=== PATIENT | male | born 1985 | race Caucasian/White ===

== ENCOUNTER 2018-11-05 03:09 | Emergency (ER) | payer MEDICAID ==
[~2018-11-05] VITALS: Ht 170.2 cm; Wt 91.0 kg
[2018-11-05] MEDS ORDERED: KETOROLAC 30MG/ML VIAL IV STA (04:05)
[2018-11-05] MEDS ORDERED: ONDANSETRON HCL 4MG/2ML INJ IV STA (04:05)
[2018-11-05] MEDS ORDERED: SODIUM CHLORIDE 0.9% 1,000 ML IV ONE (04:05)
[2018-11-05 04:31] LABS: CHLORIDE 107 mEq/L (98-107)
[2018-11-05 04:35] LABS: BASOPHILS % 1.7 % (0.0-2.0); EOSINOPHILS % 3.7 % (0.0-5.0); HEMATOCRIT. 32.8 % (42.0-52.0); HEMOGLOBIN. 11.1 g/dL (14.0-18.0); LYMPHOCYTES % 49.9 % (20.0-50.0); MEAN CORPUSCULAR HEMOGLOBIN 28.7 pg (28.0-32.0); MEAN CORPUSCULAR VOLUME 85.2 fL (80.0-94.0); MEAN PLATELET VOLUME 7.5 fl (7.4-10.4); NEUTROPHILS % 35.7 % (40.0-76.0); PLATELET 187 x1000/uL (130-400); RED BLOOD CELL COUNT 3.86 mill/uL (4.7-6.1); RED CELL DISTRIBUTION WIDTH 18.5 % (11.6-14.6)
[2018-11-05 04:38] LABS: ETHANOL BLOOD 260 mg/dL
[2018-11-05] MEDS ORDERED: METFORMIN HCL 500MG TABLET PO SCH (06:00)
[2018-11-05] MEDS ORDERED: GLIPIZIDE XL 2.5MG TABLET PO ONE (06:00)
[2018-11-05 06:39] LABS: CLARITY URINE CLEAR (CLEAR); COLOR URINE YELLOW (YELLOW); KETONES URINE NEGATIVE (NEGATIVE); LEUKOCYTE ESTERASE URINE NEGATIVE (NEGATIVE); NITRITE URINE NEGATIVE (NEGATIVE); OCCULT BLOOD URINE NEGATIVE (NEGATIVE); PH URINE 5.5 (4.5-8.0); PROTEIN URINE NEGATIVE (NEGATIVE); SPECIFIC GRAVITY URINE 1.011 (1.005-1.030); UROBILINOGEN URINE 0.2 E.U./dL (0.2-1.0)
[2018-11-05 07:05] VITALS: BP 121/84
== END 2018-11-05 08:00 | disposition home or self-care (01) ==
LOC: ER 03:45
DX: N20.0 Calculus of kidney (principal); F10.129 Alcohol abuse with intoxication, unspecified; Y90.8 Blood alcohol level of 240 mg/100 ml or more; E11.9 Type 2 diabetes mellitus without complications; E78.00 Pure hypercholesterolemia, unspecified; I10 Essential (primary) hypertension; Z87.442 Personal history of urinary calculi
CPT/HCPCS: 36415; 74176; 80053; 80320; 81003; 82962; 85025; 96374; 96375; 99284; J1885; J2405; J7030; G0480

== ENCOUNTER 2019-04-08 03:36 | Emergency (ER) | payer MEDICAID ==
[~2019-04-08] VITALS: Ht 172.7 cm; Wt 86.0 kg
[2019-04-08 04:12] VITALS: BP 124/77
== END 2019-04-08 06:01 | disposition left against medical advice (07) ==
LOC: ER 03:36
DX: Z53.21 Procedure and treatment not carried out due to patient leaving prior to being seen by health care provider (principal); E11.9 Type 2 diabetes mellitus without complications
CPT/HCPCS: 82962

== ENCOUNTER 2020-03-26 21:21 | Emergency (ER) | payer MEDICAID ==
[~2020-03-26] VITALS: Ht 157.5 cm; Wt 91.0 kg
[2020-03-26] MEDS ORDERED: KETOROLAC 30MG/ML VIAL IV ONE (22:00)
[2020-03-26] MEDS ORDERED: SODIUM CHLORIDE 0.9% 1000ML BAG (SEPSIS BOLUS) IV ONE (22:00)
[2020-03-26 22:52] LABS: CLARITY URINE CLEAR (CLEAR); COLOR URINE YELLOW (YELLOW); KETONES URINE 2+ (NEGATIVE); LEUKOCYTE ESTERASE URINE NEGATIVE (NEGATIVE); NITRITE URINE NEGATIVE (NEGATIVE); OCCULT BLOOD URINE NEGATIVE (NEGATIVE); PROTEIN URINE 1+ (NEGATIVE); UROBILINOGEN URINE 0.2 E.U./dL (0.2-1.0)
[2020-03-26] MEDS ORDERED: ONDANSETRON HCL 4MG/2ML INJ IV ONE (23:00)
[2020-03-27 00:09] VITALS: BP 124/82
[2020-03-27] MEDS ORDERED: MORPHINE SULFATE 4 MG/ML CPJ (NOT FOR IM USE) IV ONE (00:15)
== END 2020-03-27 00:10 | disposition home or self-care (01) ==
LOC: ER 21:21
DX: N20.0 Calculus of kidney (principal); K57.90 Diverticulosis of intestine, part unspecified, without perforation or abscess without bleeding; K76.0 Fatty (change of) liver, not elsewhere classified
CPT/HCPCS: 74176; 81003; 93005; 96361; 96374; 96375; 99285; J1885; J2405; J7030

== ENCOUNTER 2020-07-27 05:40 | Emergency (ER) | payer MEDICAID ==
[~2020-07-27] VITALS: Ht 172.7 cm; Wt 90.7 kg
[2020-07-27] MEDS ORDERED: KETOROLAC 30MG/ML VIAL IV STA (06:26)
[2020-07-27] MEDS ORDERED: ONDANSETRON HCL 4MG/2ML INJ IV STA (06:26)
[2020-07-27] MEDS ORDERED: SODIUM CHLORIDE 0.9% 1,000 ML IV ONE (06:30)
[2020-07-27] MEDS ORDERED: HYDROMORPHONE HCL/PF 2MG/ML CPJ IV ONE (06:30)
[2020-07-27 06:44] LABS: BASOPHILS % 0.4 % (0.0-2.0); HEMATOCRIT. 41.9 % (42.0-52.0); HEMOGLOBIN. 13.2 g/dL (14.0-18.0); LYMPHOCYTES % 14.1 % (20.0-50.0); MEAN CORPUSCULAR HEMOGLOBIN 21.2 pg (28.0-32.0); MEAN CORPUSCULAR VOLUME 67.5 fL (80.0-94.0); MEAN PLATELET VOLUME 7.7 fl (7.4-10.4); MONOCYTES % 4.5 % (2.0-8.0); PLATELET 406 x1000/uL (130-400); RED CELL DISTRIBUTION WIDTH 21.4 % (11.6-14.6)
[2020-07-27 06:51] LABS: CHLORIDE 88 mEq/L (98-107)
[2020-07-27 07:37] LABS: CLARITY URINE CLEAR (CLEAR); COLOR URINE YELLOW (YELLOW); KETONES URINE 2+ (NEGATIVE); LEUKOCYTE ESTERASE URINE NEGATIVE (NEGATIVE); NITRITE URINE NEGATIVE (NEGATIVE); OCCULT BLOOD URINE 1+ (NEGATIVE); PROTEIN URINE 2+ (NEGATIVE); UROBILINOGEN URINE 0.2 E.U./dL (0.2-1.0)
[2020-07-27] MEDS ORDERED: IBUP-2029 MT (07:42)
[2020-07-27] MEDS ORDERED: ONDA4TAB5 MT (07:43)
[2020-07-27 07:57] LABS: PLATELET ESTIMATE NORMAL
[2020-07-27 08:14] VITALS: BP 158/92
== END 2020-07-27 08:18 | disposition home or self-care (01) ==
LOC: ER 05:40
DX: N20.0 Calculus of kidney (principal)
CPT/HCPCS: 36415; 74176; 80053; 81003; 85025; 93005; 96374; 96375; 99285; J1170; J1885; J2405; J7030; Z7610

== ENCOUNTER 2021-01-24 02:04 | Emergency (ER) | payer MEDICAID, OTHER ==
[~2021-01-24] VITALS: Ht 172.7 cm; Wt 91.0 kg
[~2021-01-24 02:04] MED LIST: IBUP-2029 MT; ONDA4TAB5 MT
[2021-01-24] MEDS ORDERED: SODIUM CHLORIDE 0.9% 1,000 ML IV ONE (02:15)
[2021-01-24] MEDS ORDERED: ONDANSETRON HCL 4MG/2ML INJ IV STA (02:15)
[2021-01-24] MEDS ORDERED: KETOROLAC 30MG/ML VIAL IV STA (02:15)
[2021-01-24 03:47] LABS: CHLORIDE 97 mEq/L (98-107)
[2021-01-24 03:50] LABS: BASOPHILS % 1.2 % (0.0-2.0); CLARITY URINE CLEAR (CLEAR); COLOR URINE YELLOW (YELLOW); EOSINOPHILS % 0.1 % (0.0-5.0); HEMATOCRIT. 39.1 % (42.0-52.0); HEMOGLOBIN. 12.8 g/dL (14.0-18.0); KETONES URINE 2+ (NEGATIVE); LEUKOCYTE ESTERASE URINE NEGATIVE (NEGATIVE); LYMPHOCYTES % 30.5 % (20.0-50.0); MEAN CORPUSCULAR HEMOGLOBIN 24.5 pg (28.0-32.0); MEAN CORPUSCULAR VOLUME 74.6 fL (80.0-94.0); MEAN PLATELET VOLUME 7.6 fl (7.4-10.4); MONOCYTES % 5.6 % (2.0-8.0); NEUTROPHILS % 62.6 % (40.0-76.0); NITRITE URINE NEGATIVE (NEGATIVE); OCCULT BLOOD URINE NEGATIVE (NEGATIVE); PH URINE 5.5 (4.5-8.0); PLATELET 384 x1000/uL (130-400); PROTEIN URINE 2+ (NEGATIVE); RED BLOOD CELL COUNT 5.24 mill/uL (4.7-6.1); SPECIFIC GRAVITY URINE 1.032 (1.005-1.030)
[2021-01-24] MEDS ORDERED: MORPHINE SULFATE 4 MG/ML CPJ (NOT FOR IM USE) IV ONE (04:45)
[2021-01-24] MEDS ORDERED: MORPHINE SULFATE 2 MG/ML CPJ (NOT FOR IM USE) IV SCH (05:00)
[2021-01-24] MEDS ORDERED: ONDA4TAB5 MT (05:27)
[2021-01-24] MEDS ORDERED: IBUP-2029 MT (05:27)
[2021-01-24] MEDS ORDERED: METOCLOPRAMIDE HCL 10MG/2ML VIAL IV ONE (05:30)
[2021-01-24] MEDS ORDERED: LORAZEPAM 2MG/ML CPJ IV ONE (05:30)
[2021-01-24 05:49] VITALS: BP 145/92
== END 2021-01-24 05:51 | disposition home or self-care (01) ==
LOC: ER 02:04
DX: N23 Unspecified renal colic (principal); F10.239 Alcohol dependence with withdrawal, unspecified; Y90.9 Presence of alcohol in blood, level not specified; Z87.442 Personal history of urinary calculi
CPT/HCPCS: 36415; 71045; 74176; 80053; 81003; 83690; 84484; 85025; 93005; 96361; 96374; 96375; 99285; J1885; J2060; J2270; J2405; J2765; J7030

== ENCOUNTER 2021-02-02 13:01 | Emergency (ER) | payer MEDICAID, OTHER ==
[~2021-02-02] VITALS: Ht 167.6 cm; Wt 80.0 kg
[2021-02-02] MEDS ORDERED: SODIUM CHLORIDE 0.9% 1,000 ML IV ONE (13:30)
[2021-02-02] MEDS ORDERED: ONDANSETRON HCL 4MG/2ML INJ IV ONE (14:00)
[2021-02-02 14:43] LABS: BASOPHILS % 1.1 % (0.0-2.0); EOSINOPHILS % 0.9 % (0.0-5.0); HEMATOCRIT. 37.2 % (42.0-52.0); LYMPHOCYTES % 52.4 % (20.0-50.0); MEAN CORPUSCULAR HEMOGLOBIN 24.4 pg (28.0-32.0); MEAN CORPUSCULAR VOLUME 75.9 fL (80.0-94.0); MEAN PLATELET VOLUME 7.7 fl (7.4-10.4); MONOCYTES % 9.5 % (2.0-8.0); NEUTROPHILS % 36.1 % (40.0-76.0); PLATELET 236 x1000/uL (130-400); RED BLOOD CELL COUNT 4.91 mill/uL (4.7-6.1); RED CELL DISTRIBUTION WIDTH 20.7 % (11.6-14.6)
[2021-02-02 14:48] LABS: CLARITY URINE CLEAR (CLEAR); COLOR URINE YELLOW (YELLOW); KETONES URINE 1+ (NEGATIVE); LEUKOCYTE ESTERASE URINE NEGATIVE (NEGATIVE); NITRITE URINE NEGATIVE (NEGATIVE); OCCULT BLOOD URINE NEGATIVE (NEGATIVE); PROTEIN URINE NEGATIVE (NEGATIVE); UROBILINOGEN URINE 0.2 E.U./dL (0.2-1.0)
[2021-02-02] MEDS ORDERED: LORAZEPAM 2MG/ML CPJ IV ONE (15:15)
[2021-02-02 15:18] LABS: *AMPHETAMINES SCREEN URINE NEGATIVE (NEGATIVE); *BARBITURATES SCREEN URINE NEGATIVE (NEGATIVE); *BENZODIAZEPINES SCREEN URINE NEGATIVE (NEGATIVE); *COCAINE SCREEN URINE NEGATIVE (NEGATIVE); CANNABINOID URINE SCREEN PRESUMTIVE POSITIVE (NEGATIVE); METHADONE URINE SCREEN NEGATIVE (NEGATIVE); OPIATES URINE SCREEN NEGATIVE (NEGATIVE); PHENCYCLIDINE URINE SCREEN NEGATIVE (NEGATIVE)
[2021-02-02 15:53] LABS: CHLORIDE 99 mEq/L (98-107)
[2021-02-02 15:57] LABS: ETHANOL BLOOD 273 mg/dL
[2021-02-02 16:45] VITALS: BP 158/99
== END 2021-02-02 16:55 | disposition left against medical advice (07) ==
LOC: ER 13:09
DX: F10.129 Alcohol abuse with intoxication, unspecified (principal); R11.2 Nausea with vomiting, unspecified; Y90.7 Blood alcohol level of 200-239 mg/100 ml
CPT/HCPCS: 36415; 80053; 80305; 80307; 80320; 80329; 81003; 82962; 83930; 83935; 85025; 96361; 96374; 96375; 99284; J2060; J2405; J7030; G0480

== ENCOUNTER 2021-02-03 17:16 | Inpatient (IN) | payer MEDICAID, OTHER ==
[~2021-02-03] VITALS: Ht 167.6 cm; Wt 93.4 kg
[2021-02-03] MEDS ORDERED: SODIUM CHLORIDE 0.9% 1,000 ML IV ONE ×2 (18:30→20:00)
[2021-02-03] MEDS ORDERED: FAMOTIDINE 20MG/2ML VIAL IV ONE (18:30)
[2021-02-03 18:38] LABS: CLARITY URINE CLEAR (CLEAR); COLOR URINE YELLOW (YELLOW); KETONES URINE 1+ (NEGATIVE); LEUKOCYTE ESTERASE URINE NEGATIVE (NEGATIVE); NITRITE URINE NEGATIVE (NEGATIVE); OCCULT BLOOD URINE NEGATIVE (NEGATIVE); PROTEIN URINE NEGATIVE (NEGATIVE); UROBILINOGEN URINE 0.2 E.U./dL (0.2-1.0)
[2021-02-03 18:39] LABS: BASOPHILS % 1.6 % (0.0-2.0); EOSINOPHILS % 0.1 % (0.0-5.0); HEMATOCRIT. 38.6 % (42.0-52.0); HEMOGLOBIN. 12.3 g/dL (14.0-18.0); LYMPHOCYTES % 43.8 % (20.0-50.0); MEAN CORPUSCULAR HEMOGLOBIN 24.5 pg (28.0-32.0); MEAN CORPUSCULAR VOLUME 76.8 fL (80.0-94.0); MONOCYTES % 12.3 % (2.0-8.0); NEUTROPHILS % 42.2 % (40.0-76.0); RED BLOOD CELL COUNT 5.03 mill/uL (4.7-6.1); RED CELL DISTRIBUTION WIDTH 20.7 % (11.6-14.6)
[2021-02-03 18:43] LABS: CHLORIDE 96 mEq/L (98-107)
[2021-02-03 18:51] LABS: *AMPHETAMINES SCREEN URINE NEGATIVE (NEGATIVE); *BARBITURATES SCREEN URINE NEGATIVE (NEGATIVE); *BENZODIAZEPINES SCREEN URINE NEGATIVE (NEGATIVE); *COCAINE SCREEN URINE NEGATIVE (NEGATIVE)
[2021-02-03 18:52] LABS: CANNABINOID URINE SCREEN NEGATIVE (NEGATIVE); METHADONE URINE SCREEN NEGATIVE (NEGATIVE); OPIATES URINE SCREEN NEGATIVE (NEGATIVE); PHENCYCLIDINE URINE SCREEN NEGATIVE (NEGATIVE)
[2021-02-03 18:56] LABS: ETHANOL BLOOD 448 mg/dL
[2021-02-03] MEDS ORDERED: INSULIN REGULAR (HUMULIN R) 300UNITS/3ML VIAL SUBCUT NR (19:00)
[2021-02-03 19:02] LABS: PROTHROMBIN TIME 10.9 sec (9.6-11.0)
[2021-02-03 19:31] LABS: PLATELET 204 x1000/uL (130-400)
[2021-02-03] MEDS ORDERED: ACETAMINOPHEN 325MG TABLET PO ONE (20:00)
[2021-02-03] MEDS ORDERED: IBUPROFEN 400MG TABLET PO ONE (20:00)
[2021-02-03] MEDS ORDERED: PIPERACILLIN/TAZ 3.375G PREMIX 50 ML IV ONE (22:15)
[2021-02-03] MEDS ORDERED: SODIUM CHLORIDE 0.9% 1000ML BAG (SEPSIS BOLUS) IV ONE (22:15)
[2021-02-04 00:40] VITALS: BP 151/101
[2021-02-04] MEDS ORDERED: DEXTROSE 50% WATER 50ML SYRINGE IV PRN (01:30)
[2021-02-04] MEDS ORDERED: ACETAMINOPHEN 325MG TABLET PO PRN (01:30)
[2021-02-04] MEDS ORDERED: LACTATED RINGERS 1,000 ML IV SCH (01:30)
[2021-02-04] MEDS: LORAZEPAM 2MG/ML CPJ IV PRN ×4 (02:08→19:21)
[2021-02-04] MEDS ORDERED: NALOXONE HCL 0.4 MG/ML 1ML VIAL IV PRN (02:15)
[2021-02-04] MEDS: ONDANSETRON HCL 4MG/2ML INJ IV PRN ×4 (02:19→19:59)
[2021-02-04 02:55] LABS: CHLORIDE 102 mEq/L (98-107)
[2021-02-04 02:59] LABS: ETHANOL BLOOD 155 mg/dL
[2021-02-04] MEDS ORDERED: FOLIC ACID 1 MG, THIAMINE HCL 100 MG, MVI, ADULT NO.1 10 ML in DEXTROSE 5% WATER 1,000 ML IV SCH (03:00)
[2021-02-04 03:34] LABS: HEPATITIS B SURFACE ANTIGEN NEGATIVE
[2021-02-04] MEDS: HYDROCODONE/ACETAMINOPHEN 5/325MG TABLET PO PRN ×2 (03:55→22:04)
[2021-02-04 04:00] VITALS: BP 133/79
[2021-02-04] MEDS: CHLORDIAZEPOXIDE 25MG CAPSULE PO SCH ×3 (06:10→20:45)
[2021-02-04] MEDS: BLOOD SUGAR DIAGNOSTIC STRIP TEST SCH ×4 (06:11→20:46)
[2021-02-04 07:23] LABS: CHLORIDE 99 mEq/L (98-107)
[2021-02-04 07:31] LABS: CREATINE KINASE MB FRACTION 4.5 ng/mL (0.5-3.6); ETHANOL BLOOD 76 mg/dL
[2021-02-04 07:32] LABS: BASOPHILS % 1.6 % (0.0-2.0); EOSINOPHILS % 0.1 % (0.0-5.0); HEMATOCRIT. 32.9 % (42.0-52.0); HEMOGLOBIN. 10.8 g/dL (14.0-18.0); LYMPHOCYTES % 30.4 % (20.0-50.0); MEAN CORPUSCULAR HEMOGLOBIN 24.8 pg (28.0-32.0); MEAN CORPUSCULAR VOLUME 75.8 fL (80.0-94.0); MEAN PLATELET VOLUME 7.8 fl (7.4-10.4); MONOCYTES % 13.2 % (2.0-8.0); NEUTROPHILS % 54.7 % (40.0-76.0); PLATELET 196 x1000/uL (130-400); RED BLOOD CELL COUNT 4.35 mill/uL (4.7-6.1)
[2021-02-04 07:33] LABS: LDL CHOLESTEROL 115 mg/dL (5-100)
[2021-02-04 07:34] LABS: CREATINE KINASE 417 IU/L (39-308)
[2021-02-04 07:35] LABS: HDL CHOLESTEROL 60 mg/dL (40-59)
[2021-02-04 08:00] VITALS: BP 148/100
[2021-02-04] MEDS: INSULIN LISPRO 100 UNITS/ML SUBCUT SCH ×4 (09:08→20:47)
[2021-02-04] MEDS: PANTOPRAZOLE SODIUM 40 MG/VIAL IV SCH (10:44)
[2021-02-04] MEDS: SODIUM CHLORIDE 0.9% 1,000 ML IV SCH ×2 (10:45→20:16)
[2021-02-04] MEDS ORDERED: POTASSIUM CHLORIDE INJ 40 MEQ in DEXT 5% WATER 250 ML IV NR (11:00)
[2021-02-04 11:14] LABS: PHOSPHORUS 2.7 mg/dL (2.5-4.9)
[2021-02-04 12:00] VITALS: BP 134/86
[2021-02-04] MEDS ORDERED: INFLUENZA VACCINE 05/PF 0.5 ML SYRINGE IM ONE (12:00)
[2021-02-04] MEDS ORDERED: PNEUMOCOCCAL 23-VAL P-SAC VAC 0.5 ML IM ONE (12:00)
[2021-02-04] MEDS: FOLIC ACID 1MG TABLET PO SCH (13:09)
[2021-02-04] MEDS: THIAMINE HCL 100MG TABLET PO SCH (13:09)
[2021-02-04] MEDS: MULTIVITAMINS,THER W-MINERALS TABLET PO SCH (13:09)
[2021-02-04] MEDS: MORPHINE SULFATE 2 MG/ML CPJ (NOT FOR IM USE) IV PRN ×2 (13:10→17:41)
[2021-02-04] MEDS ORDERED: MAGNESIUM 2 G PREMIX 50 ML IV NR (14:00)
[2021-02-04 16:00] VITALS: BP 150/95
[2021-02-04 17:45] LABS: CREATINE KINASE 378 IU/L (39-308)
[2021-02-04 17:46] LABS: CREATINE KINASE MB FRACTION 3.8 ng/mL (0.5-3.6)
[2021-02-04 20:00] VITALS: BP 147/89
[2021-02-05] VITALS: BP 161/92
[2021-02-05] MEDS: LORAZEPAM 2MG/ML CPJ IV PRN ×5 (00:19→22:52)
[2021-02-05] MEDS: HYDROCODONE/ACETAMINOPHEN 5/325MG TABLET PO PRN ×2 (02:27→17:15)
[2021-02-05] MEDS: ONDANSETRON HCL 4MG/2ML INJ IV PRN ×5 (02:31→22:50)
[2021-02-05 04:00] VITALS: BP 137/75
[2021-02-05] MEDS: CHLORDIAZEPOXIDE 25MG CAPSULE PO SCH ×3 (06:14→21:17)
[2021-02-05] MEDS: SODIUM CHLORIDE 0.9% 1,000 ML IV SCH ×2 (06:14→16:33)
[2021-02-05 06:32] LABS: BASOPHILS % 1.2 % (0.0-2.0); HEMATOCRIT. 36.3 % (42.0-52.0); HEMOGLOBIN. 11.7 g/dL (14.0-18.0); LYMPHOCYTES % 28.8 % (20.0-50.0); MEAN CORPUSCULAR HEMOGLOBIN 24.6 pg (28.0-32.0); MEAN PLATELET VOLUME 7.8 fl (7.4-10.4); MONOCYTES % 11.3 % (2.0-8.0); NEUTROPHILS % 57.7 % (40.0-76.0); PLATELET 201 x1000/uL (130-400); RED BLOOD CELL COUNT 4.78 mill/uL (4.7-6.1); RED CELL DISTRIBUTION WIDTH 20.6 % (11.6-14.6)
[2021-02-05 06:36] LABS: CHLORIDE 101 mEq/L (98-107)
[2021-02-05] MEDS: MORPHINE SULFATE 2 MG/ML CPJ (NOT FOR IM USE) IV PRN ×2 (07:58→13:44)
[2021-02-05] MEDS: BLOOD SUGAR DIAGNOSTIC STRIP TEST SCH ×4 (07:59→21:19)
[2021-02-05 08:04] VITALS: BP 148/61
[2021-02-05] MEDS: PANTOPRAZOLE SODIUM 40 MG/VIAL IV SCH (08:59)
[2021-02-05] MEDS: FOLIC ACID 1MG TABLET PO SCH (09:00)
[2021-02-05] MEDS: THIAMINE HCL 100MG TABLET PO SCH (09:00)
[2021-02-05] MEDS: MULTIVITAMINS,THER W-MINERALS TABLET PO SCH (09:00)
[2021-02-05] MEDS: INSULIN LISPRO 100 UNITS/ML SUBCUT SCH ×4 (09:07→21:18)
[2021-02-05 12:00] VITALS: BP 140/85
[2021-02-05 16:05] VITALS: BP 146/91
[2021-02-05 20:00] VITALS: BP 138/99
[2021-02-05] MEDS: INSULIN GLARGINE UD 100 UNITS/ML SYR SUBCUT SCH (21:19)
[2021-02-06] VITALS: BP 160/103
[2021-02-06] MEDS: SODIUM CHLORIDE 0.9% 1,000 ML IV SCH ×3 (02:12→21:22)
[2021-02-06] MEDS: MORPHINE SULFATE 2 MG/ML CPJ (NOT FOR IM USE) IV PRN ×2 (02:13→13:29)
[2021-02-06 04:00] VITALS: BP 137/104
[2021-02-06] MEDS: LORAZEPAM 2MG/ML CPJ IV PRN ×3 (05:32→15:06)
[2021-02-06] MEDS: CHLORDIAZEPOXIDE 25MG CAPSULE PO SCH ×3 (05:32→21:22)
[2021-02-06] MEDS: BLOOD SUGAR DIAGNOSTIC STRIP TEST SCH ×4 (06:34→21:22)
[2021-02-06 06:53] LABS: CHLORIDE 102 mEq/L (98-107)
[2021-02-06 06:56] LABS: BASOPHILS % 0.8 % (0.0-2.0); EOSINOPHILS % 1.7 % (0.0-5.0); HEMATOCRIT. 35.8 % (42.0-52.0); HEMOGLOBIN. 11.7 g/dL (14.0-18.0); LYMPHOCYTES % 22.6 % (20.0-50.0); MEAN CORPUSCULAR HEMOGLOBIN 24.8 pg (28.0-32.0); MEAN CORPUSCULAR VOLUME 76.2 fL (80.0-94.0); MEAN PLATELET VOLUME 8.1 fl (7.4-10.4); NEUTROPHILS % 64.9 % (40.0-76.0); PLATELET 208 x1000/uL (130-400); RED CELL DISTRIBUTION WIDTH 21.4 % (11.6-14.6)
[2021-02-06 07:07] LABS: TOTAL IRON BINDING CAPACITY 362 ug/dL (250-450)
[2021-02-06 07:08] LABS: FOLIC ACID (FOLATE) SERUM 19.6 ng/mL (>5.38)
[2021-02-06 08:25] VITALS: BP 138/104
[2021-02-06] MEDS: THIAMINE HCL 100MG TABLET PO SCH (09:03)
[2021-02-06] MEDS: FOLIC ACID 1MG TABLET PO SCH (09:03)
[2021-02-06] MEDS: MULTIVITAMINS,THER W-MINERALS TABLET PO SCH (09:03)
[2021-02-06] MEDS: PANTOPRAZOLE SODIUM 40 MG/VIAL IV SCH (09:03)
[2021-02-06] MEDS: HYDROCODONE/ACETAMINOPHEN 10/325MG TABLET PO PRN ×2 (09:04→21:22)
[2021-02-06] MEDS: ONDANSETRON HCL 4MG/2ML INJ IV PRN (09:04)
[2021-02-06] MEDS: INSULIN LISPRO 100 UNITS/ML SUBCUT SCH ×4 (09:04→21:22)
[2021-02-06] MEDS ORDERED: POTASSIUM CHLORIDE 20MEQ TABLET SR PO SCH (12:00)
[2021-02-06 12:04] VITALS: BP 155/99
[2021-02-06 16:00] VITALS: BP 141/97
[2021-02-06] MEDS: IRON SUCROSE COMPLEX 100 MG/5 ML ML IV SCH (16:57)
[2021-02-06 20:00] VITALS: BP 142/92
[2021-02-06] MEDS: INSULIN GLARGINE UD 100 UNITS/ML SYR SUBCUT SCH (21:20)
[2021-02-06] MEDS ORDERED: CLONIDINE 0.1MG TABLET PO PRN (23:30)
[2021-02-07] VITALS: BP 133/97
[2021-02-07] MEDS: LORAZEPAM 2MG/ML CPJ IV PRN ×4 (01:27→21:37)
[2021-02-07 04:00] VITALS: BP 137/102
[2021-02-07] MEDS: CHLORDIAZEPOXIDE 25MG CAPSULE PO SCH ×3 (05:48→21:36)
[2021-02-07 06:30] LABS: CHLORIDE 102 mEq/L (98-107)
[2021-02-07 06:46] LABS: PHOSPHORUS 2.9 mg/dL (2.5-4.9)
[2021-02-07] MEDS: BLOOD SUGAR DIAGNOSTIC STRIP TEST SCH ×5 (07:20→21:37)
[2021-02-07] MEDS: MULTIVITAMINS,THER W-MINERALS TABLET PO SCH (09:46)
[2021-02-07] MEDS: THIAMINE HCL 100MG TABLET PO SCH (09:46)
[2021-02-07] MEDS: FOLIC ACID 1MG TABLET PO SCH (09:46)
[2021-02-07] MEDS: SODIUM CHLORIDE 0.9% 1,000 ML IV SCH ×2 (09:47→18:16)
[2021-02-07] MEDS: IRON SUCROSE COMPLEX 100 MG/5 ML ML IV SCH (09:47)
[2021-02-07] MEDS: PANTOPRAZOLE SODIUM 40 MG/VIAL IV SCH (09:52)
[2021-02-07] MEDS: INSULIN LISPRO 100 UNITS/ML SUBCUT SCH ×4 (09:53→21:39)
[2021-02-07] MEDS: MORPHINE SULFATE 2 MG/ML CPJ (NOT FOR IM USE) IV PRN (18:11)
[2021-02-07] MEDS ORDERED: POTASSIUM CHLORIDE 20MEQ TABLET SR PO NR (19:24)
[2021-02-07 20:00] VITALS: BP 128/95
[2021-02-07] MEDS: INSULIN GLARGINE UD 100 UNITS/ML SYR SUBCUT SCH (21:40)
[2021-02-08] MEDS ORDERED: PANTOPRAZOLE 40MG DR TABLET PO SCH (07:20)
== END 2021-02-07 23:15 | disposition left against medical advice (07) | DRG 241 ==
LOC: ER 17:16 → 6WST 22:30 → ENRESERV 23:10
PROVIDERS: ADMIT Internal Medicine; ATTEND Internal Medicine
DX: K29.20 Alcoholic gastritis without bleeding (principal); M62.82 Rhabdomyolysis; K76.0 Fatty (change of) liver, not elsewhere classified; D50.9 Iron deficiency anemia, unspecified; E78.1 Pure hyperglyceridemia; E78.5 Hyperlipidemia, unspecified; E11.65 Type 2 diabetes mellitus with hyperglycemia; K57.90 Diverticulosis of intestine, part unspecified, without perforation or abscess without bleeding; E83.42 Hypomagnesemia; F10.139 Alcohol abuse with withdrawal, unspecified; Y90.9 Presence of alcohol in blood, level not specified; F10.129 Alcohol abuse with intoxication, unspecified; N20.0 Calculus of kidney; Z87.442 Personal history of urinary calculi; Z79.1 Long term (current) use of non-steroidal anti-inflammatories (NSAID); Z79.899 Other long term (current) drug therapy; Z82.49 Family history of ischemic heart disease and other diseases of the circulatory system; Z79.4 Long term (current) use of insulin; Z91.19 Patient's noncompliance with other medical treatment and regimen
CPT/HCPCS: 36415; 71045; 74176; 80048; 80053; 80061; 80305; 80307; 80320; 80329; 81003; 82010; 82550; 82553; 82607; 82728; 82746; 82962; 83036; 83540; 83550; 83605; 83735; 83930; 84100; 84145; 84484; 85025; 86705; 86709; 86803; 87340; 93005; 97161; 99291; C9113; J1815; J2060; J2270; J2405; J2543; J3411; J3475; J3480; J3490; J7030; J7060; J7070; G0480

== ENCOUNTER 2021-02-13 04:25 | Emergency (ER) | payer OTHER ==
[~2021-02-13] VITALS: Ht 167.6 cm; Wt 82.0 kg
[2021-02-13] MEDS ORDERED: ONDANSETRON HCL 4MG/2ML INJ IV STA (05:26)
[2021-02-13] MEDS ORDERED: KETOROLAC 30MG/ML VIAL IV STA (05:26)
[2021-02-13] MEDS ORDERED: MORPHINE SULFATE 4 MG/ML CPJ (NOT FOR IM USE) IV STA (05:26)
[2021-02-13] MEDS ORDERED: SODIUM CHLORIDE 0.9% 1,000 ML IV ONE (05:30)
[2021-02-13 06:07] LABS: BASOPHILS % 2.9 % (0.0-2.0); EOSINOPHILS % 0.8 % (0.0-5.0); HEMATOCRIT. 37.8 % (42.0-52.0); HEMOGLOBIN. 12.1 g/dL (14.0-18.0); LYMPHOCYTES % 41.3 % (20.0-50.0); MEAN CORPUSCULAR HEMOGLOBIN 25.4 pg (28.0-32.0); MEAN CORPUSCULAR VOLUME 79.3 fL (80.0-94.0); MEAN PLATELET VOLUME 6.9 fl (7.4-10.4); MONOCYTES % 12.8 % (2.0-8.0); NEUTROPHILS % 42.2 % (40.0-76.0); PLATELET 243 x1000/uL (130-400); RED BLOOD CELL COUNT 4.76 mill/uL (4.7-6.1); RED CELL DISTRIBUTION WIDTH 25.7 % (11.6-14.6)
[2021-02-13 06:09] LABS: CHLORIDE 99 mEq/L (98-107)
[2021-02-13 06:56] LABS: CLARITY URINE CLEAR (CLEAR); COLOR URINE YELLOW (YELLOW); KETONES URINE NEGATIVE (NEGATIVE); LEUKOCYTE ESTERASE URINE NEGATIVE (NEGATIVE); NITRITE URINE NEGATIVE (NEGATIVE); OCCULT BLOOD URINE NEGATIVE (NEGATIVE); PROTEIN URINE NEGATIVE (NEGATIVE); SPECIFIC GRAVITY URINE 1.018 (1.005-1.030); UROBILINOGEN URINE 0.2 E.U./dL (0.2-1.0)
[2021-02-13 07:00] VITALS: BP 141/109
[2021-02-13] MEDS ORDERED: LORAZEPAM 2MG/ML CPJ IV ONE (08:00)
[2021-02-13 08:10] LABS: PLATELET ESTIMATE NORMAL
[2021-02-13] MEDS ORDERED: SULF1TAB47 MT (08:40)
[2021-02-13] MEDS ORDERED: L25 MT (08:40)
== END 2021-02-13 08:57 | disposition left against medical advice (07) ==
LOC: ER 04:52 → CANBEDREQ 08:59
DX: K75.81 Nonalcoholic steatohepatitis (NASH) (principal); N39.0 Urinary tract infection, site not specified; F10.239 Alcohol dependence with withdrawal, unspecified; E86.0 Dehydration; Z20.822 Contact with and (suspected) exposure to COVID-19; Y90.9 Presence of alcohol in blood, level not specified
CPT/HCPCS: 36415; 74176; 80053; 81003; 82962; 83690; 85025; 87426; 93005; 96361; 96374; 96375; 99285; J1885; J2060; J2270; J2405; J7030

== ENCOUNTER 2021-02-19 14:16 | Emergency (ER) | payer MEDICAID, OTHER ==
[~2021-02-19] VITALS: Ht 160 cm; Wt 90.0 kg
[~2021-02-19 14:16] MED LIST changes: +L25 MT; +SULF1TAB47 MT
[2021-02-19 18:48] VITALS: BP 125/86
[2021-02-27] MEDS ORDERED: GLIP5TAB12 MT (11:25)
[2021-02-27] MEDS ORDERED: METF-416 PO (11:25)
== END 2021-02-19 19:00 | disposition home or self-care (01) ==
LOC: ER 14:16
DX: F10.129 Alcohol abuse with intoxication, unspecified (principal); E11.9 Type 2 diabetes mellitus without complications; Z79.899 Other long term (current) drug therapy; Z87.891 Personal history of nicotine dependence; Y90.9 Presence of alcohol in blood, level not specified
CPT/HCPCS: 82962; 99283

== ENCOUNTER 2021-02-23 09:26 | Emergency (ER) | payer OTHER ==
[~2021-02-23] VITALS: Ht 172.7 cm; Wt 93.0 kg
[2021-02-23] MEDS ORDERED: ONDANSETRON HCL 4MG/2ML INJ IV STA (10:05)
[2021-02-23] MEDS ORDERED: KETOROLAC 30MG/ML VIAL IV STA (10:05)
[2021-02-23] MEDS ORDERED: SODIUM CHLORIDE 0.9% 1,000 ML IV ONE (10:15)
[2021-02-23 10:27] LABS: BASOPHILS % 1.8 % (0.0-2.0); CHLORIDE 104 mEq/L (98-107); EOSINOPHILS % 0.8 % (0.0-5.0); HEMATOCRIT. 38.3 % (42.0-52.0); MEAN CORPUSCULAR HEMOGLOBIN 25.5 pg (28.0-32.0); MEAN CORPUSCULAR VOLUME 81.4 fL (80.0-94.0); MONOCYTES % 12.6 % (2.0-8.0); NEUTROPHILS % 41.8 % (40.0-76.0); PLATELET 192 x1000/uL (130-400); RED BLOOD CELL COUNT 4.71 mill/uL (4.7-6.1); RED CELL DISTRIBUTION WIDTH 26.7 % (11.6-14.6)
[2021-02-23 10:33] LABS: CLARITY URINE CLEAR (CLEAR); COLOR URINE YELLOW (YELLOW); KETONES URINE TRACE (NEGATIVE); LEUKOCYTE ESTERASE URINE NEGATIVE (NEGATIVE); NITRITE URINE NEGATIVE (NEGATIVE); OCCULT BLOOD URINE NEGATIVE (NEGATIVE); PROTEIN URINE NEGATIVE (NEGATIVE); SPECIFIC GRAVITY URINE 1.011 (1.005-1.030)
[2021-02-23] MEDS ORDERED: MAGNESIUM/ALUMINUM HYDROXIDE/SIMETHICONE 30ML UDC PO ONE (10:45)
[2021-02-23 10:51] LABS: ETHANOL BLOOD 344 mg/dL
[2021-02-23 11:03] LABS: PLATELET ESTIMATE NORMAL
[2021-02-23 11:41] VITALS: BP 124/86
[2021-02-23] MEDS ORDERED: CHLORDIAZEPOXIDE 25MG CAPSULE PO ONE (12:00)
== END 2021-02-23 12:00 | disposition left against medical advice (07) ==
LOC: ER 09:26
DX: K85.90 Acute pancreatitis without necrosis or infection, unspecified (principal); F10.129 Alcohol abuse with intoxication, unspecified; E11.9 Type 2 diabetes mellitus without complications; Y90.8 Blood alcohol level of 240 mg/100 ml or more
CPT/HCPCS: 36415; 80053; 80320; 81003; 83690; 85025; 96361; 96374; 96375; 99284; J1885; J2405; J7030; G0480

== ENCOUNTER 2021-02-24 20:41 | Inpatient (IN) | payer OTHER ==
[~2021-02-24] VITALS: Ht 172.7 cm; Wt 90.7 kg
[2021-02-24] MEDS ORDERED: ONDANSETRON HCL 4MG/2ML INJ IV STA (21:27)
[2021-02-24] MEDS ORDERED: FOLIC ACID 1 MG, THIAMINE HCL 100 MG, MVI, ADULT NO.1 10 ML in DEXTROSE 5% WATER 1,000 ML IV ONE (21:30)
[2021-02-24] MEDS ORDERED: CHLORDIAZEPOXIDE 25MG CAPSULE PO ONE (21:30)
[2021-02-24] MEDS ORDERED: LORAZEPAM 2MG/ML CPJ IV ONE (21:30)
[2021-02-24 22:07] LABS: CLARITY URINE CLEAR (CLEAR); COLOR URINE YELLOW (YELLOW); KETONES URINE TRACE (NEGATIVE); LEUKOCYTE ESTERASE URINE NEGATIVE (NEGATIVE); NITRITE URINE NEGATIVE (NEGATIVE); OCCULT BLOOD URINE NEGATIVE (NEGATIVE); PH URINE 6.5 (4.5-8.0); PROTEIN URINE NEGATIVE (NEGATIVE); SPECIFIC GRAVITY URINE 1.012 (1.005-1.030); UROBILINOGEN URINE 0.2 E.U./dL (0.2-1.0)
[2021-02-24 22:13] LABS: BASOPHILS % 2.8 % (0.0-2.0); EOSINOPHILS % 0.1 % (0.0-5.0); HEMATOCRIT. 42.1 % (42.0-52.0); HEMOGLOBIN. 13.2 g/dL (14.0-18.0); LYMPHOCYTES % 22.3 % (20.0-50.0); MEAN CORPUSCULAR VOLUME 82.8 fL (80.0-94.0); MEAN PLATELET VOLUME 7.2 fl (7.4-10.4); MONOCYTES % 10.2 % (2.0-8.0); NEUTROPHILS % 64.6 % (40.0-76.0); PLATELET 177 x1000/uL (130-400); RED BLOOD CELL COUNT 5.09 mill/uL (4.7-6.1); RED CELL DISTRIBUTION WIDTH 26.7 % (11.6-14.6)
[2021-02-24 22:18] LABS: *AMPHETAMINES SCREEN URINE NEGATIVE (NEGATIVE); *BARBITURATES SCREEN URINE NEGATIVE (NEGATIVE); *BENZODIAZEPINES SCREEN URINE PRESUMTIVE POSITIVE (NEGATIVE); *COCAINE SCREEN URINE NEGATIVE (NEGATIVE); METHADONE URINE SCREEN NEGATIVE (NEGATIVE); OPIATES URINE SCREEN NEGATIVE (NEGATIVE)
[2021-02-24 22:19] LABS: CHLORIDE 113 mEq/L (98-107)
[2021-02-24 22:19] LABS: CANNABINOID URINE SCREEN NEGATIVE (NEGATIVE); PHENCYCLIDINE URINE SCREEN NEGATIVE (NEGATIVE)
[2021-02-24 22:36] LABS: ETHANOL BLOOD 331 mg/dL
[2021-02-24 22:44] LABS: PLATELET ESTIMATE NORMAL
[2021-02-25] MEDS ORDERED: NALOXONE HCL 0.4MG/ML VIAL IV PRN (04:00)
[2021-02-25] MEDS: HYDROCODONE/ACETAMINOPHEN 10/325MG TABLET PO PRN ×4 (04:03→22:14)
[2021-02-25] MEDS ORDERED: CHLORDIAZEPOXIDE 25MG CAPSULE PO ONE (09:15)
[2021-02-25] MEDS ORDERED: ONDANSETRON HCL 4MG/2ML INJ IV PRN (10:00)
[2021-02-25] MEDS ORDERED: CHLORDIAZEPOXIDE 25MG CAPSULE PO SCH ×2 (10:00→14:00)
[2021-02-25] MEDS ORDERED: ONDANSETRON HCL 4MG/2ML INJ IV SCH (10:00)
[2021-02-25] MEDS: SODIUM CHLORIDE 0.45% 1,000 ML IV SCH ×2 (10:14→18:38)
[2021-02-25] MEDS: FAMOTIDINE 20MG/2ML VIAL IV SCH ×2 (10:15→22:13)
[2021-02-25] MEDS: LORAZEPAM 2MG/ML CPJ IV PRN ×2 (11:17→18:38)
[2021-02-25 12:29] LABS: BASOPHILS % 1.7 % (0.0-2.0); EOSINOPHILS % 0.4 % (0.0-5.0); HEMATOCRIT. 38.8 % (42.0-52.0); HEMOGLOBIN. 12.1 g/dL (14.0-18.0); MEAN CORPUSCULAR HEMOGLOBIN 25.2 pg (28.0-32.0); MEAN PLATELET VOLUME 7.6 fl (7.4-10.4); MONOCYTES % 13.3 % (2.0-8.0); NEUTROPHILS % 45.6 % (40.0-76.0); PLATELET 166 x1000/uL (130-400); RED BLOOD CELL COUNT 4.79 mill/uL (4.7-6.1); RED CELL DISTRIBUTION WIDTH 26.1 % (11.6-14.6)
[2021-02-25] MEDS ORDERED: MORPHINE SULFATE 2 MG/ML CPJ (NOT FOR IM USE) IV ONE (12:30)
[2021-02-25 12:31] LABS: CHLORIDE 102 mEq/L (98-107)
[2021-02-25] MEDS: CHLORDIAZEPOXIDE 25MG CAPSULE PO SCH ×2 (14:11→22:12)
[2021-02-25 20:00] VITALS: BP 148/99
[2021-02-25] MEDS ORDERED: METF-416 PO (22:31)
[2021-02-25] MEDS ORDERED: GLIP5TAB12 MT (22:31)
[2021-02-26] VITALS (7 sets, daily range): BP systolic 136–155; BP diastolic 80–101
[2021-02-26] MEDS: KCL 20MEQ/100ML PREMIX 100 ML IV SCH ×2 (00:03→02:36)
[2021-02-26] MEDS: SODIUM CHLORIDE 0.45% 1,000 ML IV SCH ×3 (01:43→17:07)
[2021-02-26] MEDS: CHLORDIAZEPOXIDE 25MG CAPSULE PO SCH ×3 (06:20→21:47)
[2021-02-26] MEDS: FAMOTIDINE 20MG/2ML VIAL IV SCH ×2 (08:35→20:14)
[2021-02-26] MEDS: LORAZEPAM 2MG/ML CPJ IV PRN ×3 (08:38→22:51)
[2021-02-26] MEDS: HYDROCODONE/ACETAMINOPHEN 10/325MG TABLET PO PRN ×3 (10:07→20:14)
[2021-02-26] MEDS: POTASSIUM CHLORIDE 20MEQ TABLET SR PO PRN ×2 (13:21→21:48)
[2021-02-26 17:18] LABS: CHLORIDE 96 mEq/L (98-107)
[2021-02-27] VITALS: BP 158/90
[2021-02-27] MEDS: MORPHINE SULFATE 2 MG/ML CPJ (NOT FOR IM USE) IV PRN ×6 (00:34→23:34)
[2021-02-27 04:00] VITALS: BP 140/100
[2021-02-27] MEDS: SODIUM CHLORIDE 0.45% 1,000 ML IV SCH ×3 (04:01→18:02)
[2021-02-27] MEDS: CHLORDIAZEPOXIDE 25MG CAPSULE PO SCH ×3 (05:24→22:03)
[2021-02-27 08:00] VITALS: BP 132/96
[2021-02-27] MEDS: FAMOTIDINE 20MG/2ML VIAL IV SCH ×2 (09:00→20:33)
[2021-02-27] MEDS: AMLODIPINE 5MG TABLET PO SCH (10:08)
[2021-02-27] MEDS ORDERED: METF-416 PO (11:25)
[2021-02-27] MEDS ORDERED: GLIP5TAB12 MT (11:25)
[2021-02-27] MEDS ORDERED: L25 MT (11:25)
[2021-02-27 12:00] VITALS: BP 136/96
[2021-02-27 16:00] VITALS: BP 116/85
[2021-02-27 20:00] VITALS: BP 148/90
[2021-02-27] MEDS: LORAZEPAM 2MG/ML CPJ IV PRN (20:33)
[2021-02-28] VITALS: BP 122/92
[2021-02-28] MEDS: SODIUM CHLORIDE 0.45% 1,000 ML IV SCH ×2 (02:06→09:38)
[2021-02-28] MEDS: LORAZEPAM 2MG/ML CPJ IV PRN (02:37)
[2021-02-28 04:00] VITALS: BP 126/86
[2021-02-28] MEDS: CHLORDIAZEPOXIDE 25MG CAPSULE PO SCH (05:58)
[2021-02-28] MEDS: MORPHINE SULFATE 2 MG/ML CPJ (NOT FOR IM USE) IV PRN ×2 (05:58→10:49)
[2021-02-28 08:00] VITALS: BP 123/93
[2021-02-28] MEDS: FAMOTIDINE 20MG/2ML VIAL IV SCH (08:47)
[2021-02-28] MEDS: AMLODIPINE 5MG TABLET PO SCH (08:47)
[2021-02-28 12:00] VITALS: BP 120/94
[2021-02-28 12:08] VITALS: BP_SYST 116; BP_SYST 120; BP_DIAS 83
== END 2021-02-28 13:55 | disposition home or self-care (01) | DRG 52 ==
LOC: ER 20:41 → MICUSO 23:43 → 6EST 02-25 18:58
PROVIDERS: ADMIT Family Medicine; ATTEND Family Medicine
DX: G92.9 Unspecified toxic encephalopathy (principal); R45.851 Suicidal ideations; E11.9 Type 2 diabetes mellitus without complications; E86.0 Dehydration; K29.70 Gastritis, unspecified, without bleeding; F10.129 Alcohol abuse with intoxication, unspecified; F10.139 Alcohol abuse with withdrawal, unspecified; Y90.8 Blood alcohol level of 240 mg/100 ml or more; Z20.822 Contact with and (suspected) exposure to COVID-19; Z82.49 Family history of ischemic heart disease and other diseases of the circulatory system; Z79.899 Other long term (current) drug therapy
CPT/HCPCS: 36415; 74018; 80053; 80076; 80305; 80320; 81003; 82248; 85025; 99285; J2060; J2270; J2405; J3411; J3480; J3490; J7070; U0003; U0005; G0480

== ENCOUNTER 2021-03-06 03:25 | Emergency (ER) | payer MEDICAID, OTHER ==
[~2021-03-06] VITALS: Ht 165.1 cm; Wt 90.0 kg
[~2021-03-06 03:25] MED LIST changes: +GLIP5TAB12 MT; -L25 MT; +METF-416 PO; -SULF1TAB47 MT
[2021-03-06] MEDS ORDERED: KETOROLAC 15MG/ML VIAL IV ONE (03:45)
[2021-03-06 04:13] LABS: BASOPHILS % 0.9 % (0.0-2.0); EOSINOPHILS % 0.3 % (0.0-5.0); HEMATOCRIT. 44.8 % (42.0-52.0); LYMPHOCYTES % 35.2 % (20.0-50.0); MEAN CORPUSCULAR HEMOGLOBIN 27.7 pg (28.0-32.0); MEAN CORPUSCULAR VOLUME 82.8 fL (80.0-94.0); MEAN PLATELET VOLUME 7.5 fl (7.4-10.4); MONOCYTES % 9.9 % (2.0-8.0); NEUTROPHILS % 53.7 % (40.0-76.0); PLATELET 203 x1000/uL (130-400); RED BLOOD CELL COUNT 5.41 mill/uL (4.7-6.1); RED CELL DISTRIBUTION WIDTH 26.5 % (11.6-14.6)
[2021-03-06] MEDS ORDERED: KETOROLAC 30MG/ML VIAL IV SCH (04:15)
[2021-03-06 04:19] LABS: CHLORIDE 105 mEq/L (98-107)
[2021-03-06 04:30] LABS: ETHANOL BLOOD < 10 mg/dL
[2021-03-06 05:06] LABS: PLATELET ESTIMATE NORMAL
[2021-03-06] MEDS ORDERED: IBUP-2029 MT (05:06)
[2021-03-06 05:17] LABS: CLARITY URINE CLOUDY (CLEAR); COLOR URINE YELLOW (YELLOW); KETONES URINE NEGATIVE (NEGATIVE); LEUKOCYTE ESTERASE URINE NEGATIVE (NEGATIVE); NITRITE URINE NEGATIVE (NEGATIVE); OCCULT BLOOD URINE 1+ (NEGATIVE); PROTEIN URINE TRACE (NEGATIVE); SPECIFIC GRAVITY URINE 1.015 (1.005-1.030)
[2021-03-06 05:35] LABS: CANNABINOID URINE SCREEN NEGATIVE (NEGATIVE); OPIATES URINE SCREEN NEGATIVE (NEGATIVE); PHENCYCLIDINE URINE SCREEN NEGATIVE (NEGATIVE)
[2021-03-06 05:36] LABS: *AMPHETAMINES SCREEN URINE NEGATIVE (NEGATIVE); *BARBITURATES SCREEN URINE NEGATIVE (NEGATIVE); *BENZODIAZEPINES SCREEN URINE PRESUMTIVE POSITIVE (NEGATIVE); *COCAINE SCREEN URINE NEGATIVE (NEGATIVE); METHADONE URINE SCREEN NEGATIVE (NEGATIVE)
[2021-03-06 05:40] VITALS: BP 131/65
== END 2021-03-06 05:43 | disposition home or self-care (01) ==
LOC: ER 03:25
DX: N20.0 Calculus of kidney (principal); E11.65 Type 2 diabetes mellitus with hyperglycemia; I10 Essential (primary) hypertension; Z79.899 Other long term (current) drug therapy
CPT/HCPCS: 36415; 74176; 80053; 80305; 80320; 81003; 83690; 85025; 96374; 99284; J1885; G0480

== ENCOUNTER 2021-03-18 08:39 | Inpatient (IN) | payer MEDICAID, OTHER ==
[~2021-03-18] VITALS: Ht 172.7 cm; Wt 91.6 kg
[2021-03-18 10:13] LABS: BASOPHILS % 0.5 % (0.0-2.0); EOSINOPHILS % 0.1 % (0.0-5.0); HEMATOCRIT. 38.9 % (42.0-52.0); HEMOGLOBIN. 12.8 g/dL (14.0-18.0); LYMPHOCYTES % 25.3 % (20.0-50.0); MEAN CORPUSCULAR HEMOGLOBIN 26.5 pg (28.0-32.0); MEAN CORPUSCULAR VOLUME 80.3 fL (80.0-94.0); MEAN PLATELET VOLUME 7.3 fl (7.4-10.4); MONOCYTES % 10.7 % (2.0-8.0); NEUTROPHILS % 63.4 % (40.0-76.0); PLATELET 156 x1000/uL (130-400); RED BLOOD CELL COUNT 4.85 mill/uL (4.7-6.1); RED CELL DISTRIBUTION WIDTH 25.1 % (11.6-14.6)
[2021-03-18 10:15] LABS: CHLORIDE 95 mEq/L (98-107)
[2021-03-18 10:18] LABS: ETHANOL BLOOD < 10 mg/dL
[2021-03-18] MEDS ORDERED: ONDANSETRON HCL 4MG/2ML INJ IV STA (10:20)
[2021-03-18] MEDS ORDERED: SODIUM CHLORIDE 0.9% 1,000 ML IV ONE (10:30)
[2021-03-18] MEDS ORDERED: FAMOTIDINE 20MG/2ML VIAL IV ONE (11:45)
[2021-03-18] MEDS ORDERED: LORAZEPAM 2MG/ML CPJ IV ONE (11:45)
[2021-03-18] MEDS ORDERED: ONDANSETRON HCL 4MG/2ML INJ IV ONE (12:15)
[2021-03-18 12:29] LABS: CLARITY URINE CLOUDY (CLEAR); COLOR URINE YELLOW (YELLOW); KETONES URINE 3+ (NEGATIVE); LEUKOCYTE ESTERASE URINE NEGATIVE (NEGATIVE); NITRITE URINE NEGATIVE (NEGATIVE); OCCULT BLOOD URINE NEGATIVE (NEGATIVE); PROTEIN URINE 1+ (NEGATIVE); SPECIFIC GRAVITY URINE 1.017 (1.005-1.030); UROBILINOGEN URINE 0.2 E.U./dL (0.2-1.0)
[2021-03-18 12:53] LABS: METHADONE URINE SCREEN NEGATIVE (NEGATIVE); OPIATES URINE SCREEN NEGATIVE (NEGATIVE)
[2021-03-18 12:55] LABS: *AMPHETAMINES SCREEN URINE NEGATIVE (NEGATIVE); *BARBITURATES SCREEN URINE NEGATIVE (NEGATIVE); *BENZODIAZEPINES SCREEN URINE PRESUMTIVE POSITIVE (NEGATIVE); *COCAINE SCREEN URINE NEGATIVE (NEGATIVE); CANNABINOID URINE SCREEN NEGATIVE (NEGATIVE); PHENCYCLIDINE URINE SCREEN NEGATIVE (NEGATIVE)
[2021-03-18 13:07] LABS: PLATELET ESTIMATE NORMAL
[2021-03-18] MEDS ORDERED: DEXTROSE 50% WATER 50ML SYRINGE IV PRN (18:30)
[2021-03-18] MEDS ORDERED: MORPHINE SULFATE 4 MG/ML CPJ (NOT FOR IM USE) IV PRN (18:30)
[2021-03-18 19:16] LABS: PHOSPHORUS 3.5 mg/dL (2.5-4.9)
[2021-03-18] MEDS ORDERED: NALOXONE HCL 0.4MG/ML VIAL IV PRN (19:30)
[2021-03-18] MEDS ORDERED: MVI, ADULT NO.1 10 ML, FOLIC ACID 1 MG, THIAMINE HCL 100 MG in SODIUM CHLORIDE 0.9% 1,0... IV NR ×4 (19:45)
[2021-03-18] MEDS ORDERED: POTASSIUM CHLORIDE INJ 40 MEQ in DEXT 5% WATER 250 ML IV NR (19:45)
[2021-03-18] MEDS: INSULIN LISPRO 100 UNITS/ML SUBCUT SCH (19:57)
[2021-03-18] MEDS: BLOOD SUGAR DIAGNOSTIC STRIP TEST SCH (19:59)
[2021-03-18] MEDS: PANTOPRAZOLE SODIUM 40 MG/VIAL IV SCH (20:38)
[2021-03-18] MEDS: LORAZEPAM 2MG/ML CPJ IV PRN (20:48)
[2021-03-18] MEDS: ONDANSETRON HCL 4MG/2ML INJ IV PRN (22:55)
[2021-03-19] VITALS (7 sets, daily range): BP systolic 113–154; BP diastolic 59–99
[2021-03-19] MEDS: LORAZEPAM 2MG/ML CPJ IV PRN ×4 (02:16→20:34)
[2021-03-19] MEDS ORDERED: SODIUM CHLORIDE 0.9% 1,000 ML IV SCH (04:00)
[2021-03-19] MEDS: ONDANSETRON HCL 4MG/2ML INJ IV PRN ×2 (05:02→11:29)
[2021-03-19] MEDS: MORPHINE SULFATE 2 MG/ML CPJ (NOT FOR IM USE) IV PRN ×5 (05:03→23:19)
[2021-03-19] MEDS: INSULIN LISPRO 100 UNITS/ML SUBCUT SCH ×4 (05:32→18:25)
[2021-03-19] MEDS: BLOOD SUGAR DIAGNOSTIC STRIP TEST SCH ×4 (05:32→18:30)
[2021-03-19 05:43] LABS: BASOPHILS % 0.7 % (0.0-2.0); EOSINOPHILS % 0.2 % (0.0-5.0); HEMATOCRIT. 36.3 % (42.0-52.0); HEMOGLOBIN. 12.2 g/dL (14.0-18.0); LYMPHOCYTES % 20.8 % (20.0-50.0); MEAN CORPUSCULAR VOLUME 80.5 fL (80.0-94.0); MEAN PLATELET VOLUME 7.4 fl (7.4-10.4); MONOCYTES % 12.9 % (2.0-8.0); NEUTROPHILS % 65.4 % (40.0-76.0); PLATELET 110 x1000/uL (130-400); RED BLOOD CELL COUNT 4.51 mill/uL (4.7-6.1); RED CELL DISTRIBUTION WIDTH 25.1 % (11.6-14.6)
[2021-03-19 07:01] LABS: CHLORIDE 99 mEq/L (98-107)
[2021-03-19 07:07] LABS: PHOSPHORUS 2.9 mg/dL (2.5-4.9)
[2021-03-19] MEDS: PANTOPRAZOLE SODIUM 40 MG/VIAL IV SCH ×2 (09:16→20:33)
[2021-03-19] MEDS: SODIUM CHLORIDE 0.9% 1,000 ML IV SCH ×2 (09:45→16:32)
[2021-03-19] MEDS ORDERED: HYDRALAZINE 20MG/ML VIAL IV PRN (13:45)
[2021-03-19] MEDS ORDERED: HYDRALAZINE 20MG/ML VIAL IV SCH (14:00)
[2021-03-19] MEDS ORDERED: POTASSIUM CHLORIDE INJ 40 MEQ in DEXT 5% WATER 250 ML IV NR (14:00)
[2021-03-19] MEDS: DIPHENHYDRAMINE 50MG/ML VIAL IV PRN ×2 (16:32→20:40)
[2021-03-20] VITALS: BP 149/92
[2021-03-20] MEDS: INSULIN LISPRO 100 UNITS/ML SUBCUT SCH
[2021-03-20] MEDS: BLOOD SUGAR DIAGNOSTIC STRIP TEST SCH (00:03)
[2021-03-20] MEDS: LORAZEPAM 2MG/ML CPJ IV PRN ×2 (00:26→04:34)
[2021-03-20] MEDS: SODIUM CHLORIDE 0.9% 1,000 ML IV SCH ×2 (00:30→02:42)
[2021-03-20 03:20] VITALS: BP 139/102
[2021-03-20] MEDS: MORPHINE SULFATE 2 MG/ML CPJ (NOT FOR IM USE) IV PRN (03:20)
== END 2021-03-20 04:55 | disposition left against medical advice (07) | DRG 241 ==
LOC: ER 08:44 → EDBEDREQ 12:31 → 8WST 13:19 → EDBEDREQ 13:23 → ENRESERV 23:20
PROVIDERS: ADMIT Internal Medicine; ATTEND Internal Medicine
DX: K29.20 Alcoholic gastritis without bleeding (principal); F10.131 Alcohol abuse with withdrawal delirium; E87.1 Hypo-osmolality and hyponatremia; E87.6 Hypokalemia; K57.90 Diverticulosis of intestine, part unspecified, without perforation or abscess without bleeding; E11.9 Type 2 diabetes mellitus without complications; N20.0 Calculus of kidney; Y90.9 Presence of alcohol in blood, level not specified; I10 Essential (primary) hypertension; Z82.49 Family history of ischemic heart disease and other diseases of the circulatory system; Z79.1 Long term (current) use of non-steroidal anti-inflammatories (NSAID); Z79.899 Other long term (current) drug therapy; Z87.442 Personal history of urinary calculi; Z53.29 Procedure and treatment not carried out because of patient's decision for other reasons
CPT/HCPCS: 36415; 71045; 74176; 80053; 80305; 80320; 81003; 82962; 83036; 83735; 84100; 84484; 85025; 93005; 99285; C9113; J0360; J1200; J1815; J2060; J2270; J2405; J3411; J3480; J3490; J7030; J7060; G0480

== ENCOUNTER 2021-04-11 18:48 | Emergency (ER) | payer MEDICAID ==
[~2021-04-11] VITALS: Ht 172.7 cm; Wt 80.0 kg
[2021-04-11 18:58] VITALS: BP 142/98
[2021-04-11] MEDS ORDERED: SODIUM CHLORIDE 0.9% 1,000 ML IV ONE (20:45)
== END 2021-04-11 21:00 | disposition left against medical advice (07) ==
LOC: ER 18:48
DX: Z53.21 Procedure and treatment not carried out due to patient leaving prior to being seen by health care provider (principal); E11.65 Type 2 diabetes mellitus with hyperglycemia; R10.9 Unspecified abdominal pain
CPT/HCPCS: J7030

== ENCOUNTER 2021-04-12 01:44 | Emergency (ER) | payer MEDICAID ==
[~2021-04-12] VITALS: Ht 165.1 cm; Wt 84.0 kg
[2021-04-12] MEDS ORDERED: KETOROLAC 30MG/ML VIAL IV STA (02:12)
[2021-04-12] MEDS ORDERED: ONDANSETRON HCL 4MG/2ML INJ IV STA (02:12)
[2021-04-12] MEDS ORDERED: PHENOBARBITAL 30 MG TABLET PO ONE (02:15)
[2021-04-12] MEDS ORDERED: SODIUM CHLORIDE 0.9% 1,000 ML IV ONE (02:15)
[2021-04-12 02:50] LABS: BASOPHILS % 3.5 % (0.0-2.0); HEMATOCRIT. 46.5 % (42.0-52.0); HEMOGLOBIN. 15.4 g/dL (14.0-18.0); LYMPHOCYTES % 8.5 % (20.0-50.0); MEAN CORPUSCULAR HEMOGLOBIN 27.3 pg (28.0-32.0); MEAN CORPUSCULAR VOLUME 82.5 fL (80.0-94.0); MEAN PLATELET VOLUME 7.6 fl (7.4-10.4); MONOCYTES % 1.4 % (2.0-8.0); NEUTROPHILS % 86.6 % (40.0-76.0); PLATELET 304 x1000/uL (130-400); RED BLOOD CELL COUNT 5.64 mill/uL (4.7-6.1); RED CELL DISTRIBUTION WIDTH 23.1 % (11.6-14.6)
[2021-04-12 02:59] LABS: CHLORIDE 102 mEq/L (98-107)
[2021-04-12 03:21] LABS: ETHANOL BLOOD 327 mg/dL
[2021-04-12 05:00] VITALS: BP 136/89
[2021-04-12] MEDS ORDERED: IBUPROFEN 600MG TABLET PO ONE (05:45)
[2021-04-12 07:10] LABS: CLARITY URINE CLEAR (CLEAR); COLOR URINE YELLOW (YELLOW); KETONES URINE 1+ (NEGATIVE); LEUKOCYTE ESTERASE URINE NEGATIVE (NEGATIVE); NITRITE URINE NEGATIVE (NEGATIVE); OCCULT BLOOD URINE NEGATIVE (NEGATIVE); PROTEIN URINE 1+ (NEGATIVE); SPECIFIC GRAVITY URINE 1.027 (1.005-1.030); UROBILINOGEN URINE 0.2 E.U./dL (0.2-1.0)
== END 2021-04-12 05:49 | disposition home or self-care (01) ==
LOC: ER 01:44
DX: F10.129 Alcohol abuse with intoxication, unspecified (principal); Y90.7 Blood alcohol level of 200-239 mg/100 ml; E05.90 Thyrotoxicosis, unspecified without thyrotoxic crisis or storm; E11.9 Type 2 diabetes mellitus without complications; I10 Essential (primary) hypertension
CPT/HCPCS: 36415; 71045; 80053; 80320; 81003; 82140; 82962; 83690; 84443; 85025; 93005; 96361; 96374; 96375; 99285; J1885; J2405; J7030; G0480

== ENCOUNTER 2021-04-25 05:31 | Inpatient (IN) | payer MEDICAID ==
[~2021-04-25] VITALS: Ht 172.7 cm; Wt 82.6 kg
[2021-04-25] MEDS ORDERED: ONDANSETRON HCL 4MG/2ML INJ IV STA (05:43)
[2021-04-25] MEDS ORDERED: SODIUM CHLORIDE 0.9% 1,000 ML IV ONE (05:45)
[2021-04-25] MEDS ORDERED: CHLORDIAZEPOXIDE 25MG CAPSULE PO ONE (06:00)
[2021-04-25 06:37] LABS: HEMATOCRIT. 43.7 % (42.0-52.0); HEMOGLOBIN. 14.4 g/dL (14.0-18.0); MEAN CORPUSCULAR VOLUME 84.8 fL (80.0-94.0); MEAN PLATELET VOLUME 8.1 fl (7.4-10.4); PLATELET 224 x1000/uL (130-400); RED BLOOD CELL COUNT 5.15 mill/uL (4.7-6.1); RED CELL DISTRIBUTION WIDTH 22.4 % (11.6-14.6)
[2021-04-25 06:41] LABS: CHLORIDE 93 mEq/L (98-107)
[2021-04-25 06:53] LABS: ETHANOL BLOOD 442 mg/dL
[2021-04-25] MEDS ORDERED: LORAZEPAM 2MG/ML CPJ IV ONE ×3 (07:30→10:00)
[2021-04-25 07:40] LABS: PLATELET ESTIMATE NORMAL
[2021-04-25 08:02] LABS: *AMPHETAMINES SCREEN URINE NEGATIVE (NEGATIVE); *BARBITURATES SCREEN URINE NEGATIVE (NEGATIVE); *BENZODIAZEPINES SCREEN URINE PRESUMTIVE POSITIVE (NEGATIVE); *COCAINE SCREEN URINE NEGATIVE (NEGATIVE)
[2021-04-25 08:03] LABS: CANNABINOID URINE SCREEN NEGATIVE (NEGATIVE); METHADONE URINE SCREEN NEGATIVE (NEGATIVE); OPIATES URINE SCREEN NEGATIVE (NEGATIVE); PHENCYCLIDINE URINE SCREEN NEGATIVE (NEGATIVE)
[2021-04-25] MEDS ORDERED: KETOROLAC 30MG/ML VIAL IV ONE (08:15)
[2021-04-25] MEDS ORDERED: DEXTROSE 50% WATER 50ML SYRINGE IV PRN (09:15)
[2021-04-25] MEDS ORDERED: SODIUM POLYSTYRENE SULFONATE 15 G/60 ML BOT PO NR (09:30)
[2021-04-25 09:35] LABS: CHLORIDE 96 mEq/L (98-107)
[2021-04-25] MEDS ORDERED: INSULIN GLARGINE UD 100 UNITS/ML SYR SUBCUT NR (10:00)
[2021-04-25] MEDS ORDERED: FOLIC ACID 1 MG, THIAMINE HCL 100 MG, MVI, ADULT NO.1 10 ML in DEXTROSE 5% WATER 1,000 ML IV NR ×4 (10:00)
[2021-04-25] MEDS ORDERED: NALOXONE HCL 0.4MG/ML VIAL IV PRN (13:00)
[2021-04-25] MEDS: BLOOD SUGAR DIAGNOSTIC STRIP TEST SCH ×3 (13:26→21:00)
[2021-04-25] MEDS: LORAZEPAM 2MG/ML CPJ IV PRN ×2 (13:39→20:04)
[2021-04-25] MEDS: CHLORDIAZEPOXIDE 25MG CAPSULE PO SCH ×2 (14:09→22:59)
[2021-04-25] MEDS: INSULIN LISPRO 100 UNITS/ML SUBCUT SCH ×3 (14:12→23:02)
[2021-04-25] MEDS: ONDANSETRON HCL 4MG/2ML INJ IV PRN (20:05)
[2021-04-25] MEDS: HYDROCODONE/ACETAMINOPHEN 5/325MG TABLET PO PRN (20:23)
[2021-04-25 20:30] VITALS: BP 137/88
[2021-04-25 21:00] VITALS: BP 137/88
[2021-04-25] MEDS: INSULIN GLARGINE UD 100 UNITS/ML SYR SUBCUT SCH (23:00)
[2021-04-26] VITALS: BP 123/63
[2021-04-26] MEDS: HYDROCODONE/ACETAMINOPHEN 5/325MG TABLET PO PRN ×2 (00:38→17:30)
[2021-04-26] MEDS: LORAZEPAM 2MG/ML CPJ IV PRN ×4 (02:48→22:24)
[2021-04-26] MEDS: ONDANSETRON HCL 4MG/2ML INJ IV PRN (02:48)
[2021-04-26 04:00] VITALS: BP 149/83
[2021-04-26 06:42] LABS: CHLORIDE 91 mEq/L (98-107)
[2021-04-26] MEDS: CHLORDIAZEPOXIDE 25MG CAPSULE PO SCH ×3 (06:48→22:24)
[2021-04-26 06:50] LABS: BASOPHILS % 0.4 % (0.0-2.0); EOSINOPHILS % 0.1 % (0.0-5.0); HEMATOCRIT. 34.3 % (42.0-52.0); LYMPHOCYTES % 13.5 % (20.0-50.0); MEAN CORPUSCULAR HEMOGLOBIN 28.1 pg (28.0-32.0); MEAN PLATELET VOLUME 7.8 fl (7.4-10.4); MONOCYTES % 13.4 % (2.0-8.0); NEUTROPHILS % 72.6 % (40.0-76.0); PLATELET 136 x1000/uL (130-400); RED BLOOD CELL COUNT 4.29 mill/uL (4.7-6.1); RED CELL DISTRIBUTION WIDTH 20.8 % (11.6-14.6)
[2021-04-26] MEDS: BLOOD SUGAR DIAGNOSTIC STRIP TEST SCH ×4 (07:08→21:00)
[2021-04-26] MEDS: INSULIN LISPRO 100 UNITS/ML SUBCUT SCH ×4 (07:40→22:25)
[2021-04-26] MEDS ORDERED: POTASSIUM CHLORIDE 20MEQ TABLET SR PO SCH ×2 (08:00)
[2021-04-26 08:24] VITALS: BP 133/96
[2021-04-26 09:21] LABS: PHOSPHORUS 1.6 mg/dL (2.5-4.9)
[2021-04-26] MEDS ORDERED: PNEUMOCOCCAL 23-VAL P-SAC VAC 0.5 ML IM ONE (10:00)
[2021-04-26] MEDS ORDERED: INFLUENZA VACCINE 05/PF 0.5 ML SYRINGE IM ONE (10:00)
[2021-04-26] MEDS: INSULIN GLARGINE UD 100 UNITS/ML SYR SUBCUT SCH ×2 (10:14→22:26)
[2021-04-26 12:09] VITALS: BP 143/60
[2021-04-26 16:24] VITALS: BP 133/87
[2021-04-26 20:00] VITALS: BP 133/99
[2021-04-26] MEDS ORDERED: MAGNESIUM 2 G PREMIX 50 ML IV NR (23:00)
[2021-04-26] MEDS ORDERED: POTASSIUM PHOS,M-BASIC-D-BASIC 20 MMOL in DEXT 5% WATER 243.3333 ML IV NR (23:00)
[2021-04-27] VITALS: BP 126/87
[2021-04-27 04:00] VITALS: BP 119/86
[2021-04-27] MEDS: CHLORDIAZEPOXIDE 25MG CAPSULE PO SCH ×3 (05:28→21:52)
[2021-04-27] MEDS: LORAZEPAM 2MG/ML CPJ IV PRN ×3 (05:33→18:22)
[2021-04-27] MEDS: INSULIN LISPRO 100 UNITS/ML SUBCUT SCH ×4 (06:40→22:15)
[2021-04-27] MEDS: BLOOD SUGAR DIAGNOSTIC STRIP TEST SCH ×4 (06:40→21:00)
[2021-04-27 07:26] LABS: BASOPHILS % 0.7 % (0.0-2.0); EOSINOPHILS % 0.5 % (0.0-5.0); HEMATOCRIT. 37.5 % (42.0-52.0); HEMOGLOBIN. 12.9 g/dL (14.0-18.0); LYMPHOCYTES % 16.4 % (20.0-50.0); MEAN CORPUSCULAR HEMOGLOBIN 28.2 pg (28.0-32.0); MONOCYTES % 11.1 % (2.0-8.0); NEUTROPHILS % 71.3 % (40.0-76.0); RED BLOOD CELL COUNT 4.58 mill/uL (4.7-6.1)
[2021-04-27 07:39] VITALS: BP 139/90
[2021-04-27 07:50] LABS: CHLORIDE 96 mEq/L (98-107)
[2021-04-27] MEDS: INSULIN GLARGINE UD 100 UNITS/ML SYR SUBCUT SCH ×2 (09:54→22:16)
[2021-04-27 12:05] VITALS: BP 142/91
[2021-04-27 14:07] LABS: MEAN PLATELET VOLUME 8.1 fl (7.4-10.4); PLATELET 127 x1000/uL (130-400)
[2021-04-27 15:31] VITALS: BP 125/90
[2021-04-27 17:36] LABS: PHOSPHORUS 2.7 mg/dL (2.5-4.9)
[2021-04-27 20:00] VITALS: BP 133/96
[2021-04-27] MEDS ORDERED: MORPHINE SULFATE 2 MG/ML CPJ (NOT FOR IM USE) IV SCH (21:45)
[2021-04-28] VITALS (7 sets, daily range): BP systolic 115–127; BP diastolic 84–91
[2021-04-28] MEDS: LORAZEPAM 2MG/ML CPJ IV PRN ×3 (01:09→20:55)
[2021-04-28] MEDS: CHLORDIAZEPOXIDE 25MG CAPSULE PO SCH ×3 (05:57→23:40)
[2021-04-28] MEDS: INSULIN LISPRO 100 UNITS/ML SUBCUT SCH ×4 (07:40→21:17)
[2021-04-28] MEDS: BLOOD SUGAR DIAGNOSTIC STRIP TEST SCH ×4 (07:43→20:45)
[2021-04-28] MEDS: METOPROLOL TARTRATE 25MG TABLET PO SCH ×2 (11:16→20:55)
[2021-04-28] MEDS: HYDROCODONE/ACETAMINOPHEN 5/325MG TABLET PO PRN ×2 (11:16→22:30)
[2021-04-28] MEDS: INSULIN GLARGINE UD 100 UNITS/ML SYR SUBCUT SCH ×2 (11:17→22:34)
[2021-04-29] VITALS: BP 123/82
[2021-04-29 04:00] VITALS: BP 124/82
[2021-04-29] MEDS: LORAZEPAM 2MG/ML CPJ IV PRN ×2 (04:23→09:58)
[2021-04-29] MEDS: CHLORDIAZEPOXIDE 25MG CAPSULE PO SCH (05:11)
[2021-04-29] MEDS: BLOOD SUGAR DIAGNOSTIC STRIP TEST SCH (06:18)
[2021-04-29] MEDS: INSULIN LISPRO 100 UNITS/ML SUBCUT SCH (06:31)
[2021-04-29 08:20] VITALS: BP 119/77
[2021-04-29] MEDS: METOPROLOL TARTRATE 25MG TABLET PO SCH (09:01)
[2021-04-29 09:33] VITALS: BP 119/77
[2021-04-29] MEDS: INSULIN GLARGINE UD 100 UNITS/ML SYR SUBCUT SCH (10:01)
== END 2021-04-29 11:10 | disposition home or self-care (01) | DRG 775 ==
LOC: ER 05:31 → 8WST 07:44 → ENRESERV 19:53
PROVIDERS: ADMIT Internal Medicine; ATTEND Internal Medicine
DX: F10.129 Alcohol abuse with intoxication, unspecified (principal); E87.8 Other disorders of electrolyte and fluid balance, not elsewhere classified; K76.0 Fatty (change of) liver, not elsewhere classified; E87.1 Hypo-osmolality and hyponatremia; F10.139 Alcohol abuse with withdrawal, unspecified; E11.65 Type 2 diabetes mellitus with hyperglycemia; E87.5 Hyperkalemia; I10 Essential (primary) hypertension; Z20.822 Contact with and (suspected) exposure to COVID-19; Y90.9 Presence of alcohol in blood, level not specified; Z87.442 Personal history of urinary calculi
CPT/HCPCS: 36415; 74176; 80048; 80053; 80305; 80320; 82962; 83735; 84100; 85025; 87426; 90686; 90732; 93005; 99285; C1893; J1815; J1885; J2060; J2270; J2405; J3411; J3475; J3490; J7030; J7060; J7070; G0480

== ENCOUNTER 2021-07-27 09:34 | Emergency (ER) | payer MEDICAID ==
[~2021-07-27] VITALS: Ht 175.3 cm; Wt 100.0 kg
[2021-07-27] MEDS ORDERED: METOCLOPRAMIDE HCL 10MG/2ML VIAL IV STA (10:56)
[2021-07-27] MEDS ORDERED: SODIUM CHLORIDE 0.9% 1,000 ML IV ONE (11:00)
[2021-07-27] MEDS ORDERED: KETOROLAC 15MG/ML VIAL IV ONE (11:00)
[2021-07-27 11:20] VITALS: BP 130/102
[2021-07-27] MEDS ORDERED: MORPHINE SULFATE 4 MG/ML CPJ (NOT FOR IM USE) IV ONE (12:00)
[2021-07-27 12:21] LABS: BASOPHILS % 0.2 % (0.0-2.0); HEMATOCRIT. 44.7 % (42.0-52.0); HEMOGLOBIN. 15.2 g/dL (14.0-18.0); LYMPHOCYTES % 13.1 % (20.0-50.0); MEAN CORPUSCULAR HEMOGLOBIN 26.9 pg (28.0-32.0); MEAN PLATELET VOLUME 8.1 fl (7.4-10.4); NEUTROPHILS % 82.7 % (40.0-76.0); PLATELET 352 x1000/uL (130-400); RED BLOOD CELL COUNT 5.66 mill/uL (4.7-6.1)
[2021-07-27 12:31] LABS: CHLORIDE 90 mEq/L (98-107)
[2021-07-27 13:20] LABS: ETHANOL BLOOD 297 mg/dL
== END 2021-07-27 14:34 | disposition left against medical advice (07) ==
LOC: ER 09:39
DX: R07.89 Other chest pain (principal); I10 Essential (primary) hypertension; E11.9 Type 2 diabetes mellitus without complications
CPT/HCPCS: 36415; 71045; 80053; 80320; 83605; 83690; 84484; 85025; 93005; 96361; 96374; 96375; 99285; J1885; J2765; J7030; G0480

== ENCOUNTER 2021-10-22 03:35 | Emergency (ER) | payer MEDICAID ==
[~2021-10-22] VITALS: Ht 172.7 cm; Wt 95.0 kg
[2021-10-22 04:30] LABS: BASOPHILS % 0.6 % (0.0-2.0); EOSINOPHILS % 0.1 % (0.0-5.0); HEMATOCRIT. 38.9 % (42.0-52.0); HEMOGLOBIN. 12.9 g/dL (14.0-18.0); LYMPHOCYTES % 11.3 % (20.0-50.0); MEAN CORPUSCULAR HEMOGLOBIN 26.7 pg (28.0-32.0); MEAN CORPUSCULAR VOLUME 80.7 fL (80.0-94.0); MEAN PLATELET VOLUME 7.1 fl (7.4-10.4); MONOCYTES % 4.6 % (2.0-8.0); NEUTROPHILS % 83.4 % (40.0-76.0); PLATELET 293 x1000/uL (130-400); RED BLOOD CELL COUNT 4.83 mill/uL (4.7-6.1); RED CELL DISTRIBUTION WIDTH 17.1 % (11.6-14.6)
[2021-10-22 04:36] LABS: CHLORIDE 101 mEq/L (98-107)
[2021-10-22 04:56] LABS: CLARITY URINE CLEAR (CLEAR); COLOR URINE YELLOW (YELLOW); KETONES URINE 1+ (NEGATIVE); LEUKOCYTE ESTERASE URINE NEGATIVE (NEGATIVE); NITRITE URINE NEGATIVE (NEGATIVE); OCCULT BLOOD URINE NEGATIVE (NEGATIVE); PH URINE 7.5 (4.5-8.0); PROTEIN URINE NEGATIVE (NEGATIVE); SPECIFIC GRAVITY URINE 1.017 (1.005-1.030)
[2021-10-22] MEDS ORDERED: KETOROLAC 30MG/ML VIAL IV STA (05:35)
[2021-10-22] MEDS ORDERED: METOCLOPRAMIDE HCL 10MG/2ML VIAL IV STA (05:35)
[2021-10-22] MEDS ORDERED: DIAZEPAM 5 MG/ML 2ML CPJ IV ONE (05:45)
[2021-10-22] MEDS ORDERED: DIAZEPAM 5 MG/ML 2ML CPJ IV NR (06:00)
[2021-10-22 06:38] VITALS: BP 129/84
== END 2021-10-22 06:47 | disposition left against medical advice (07) ==
LOC: ER 03:35
DX: R07.89 Other chest pain (principal); R10.84 Generalized abdominal pain; E11.9 Type 2 diabetes mellitus without complications; I10 Essential (primary) hypertension; Z87.442 Personal history of urinary calculi; Z79.84 Long term (current) use of oral hypoglycemic drugs
CPT/HCPCS: 36415; 71045; 74176; 80053; 81003; 82962; 83690; 84484; 85025; 85379; 93005; 96374; 96375; 99285; J1885; J2765; J3360

== ENCOUNTER 2021-10-28 08:32 | Emergency (ER) | payer MEDICAID ==
[~2021-10-28] VITALS: Ht 170.2 cm; Wt 71.0 kg
[2021-10-28] MEDS ORDERED: MORPHINE SULFATE 4 MG/ML CPJ (NOT FOR IM USE) IV STA (08:45)
[2021-10-28] MEDS ORDERED: ONDANSETRON HCL 4MG/2ML INJ IV STA (08:45)
[2021-10-28] MEDS ORDERED: SODIUM CHLORIDE 0.9% 1,000 ML IV ONE (08:45)
[2021-10-28 09:28] LABS: BASOPHILS % 0.2 % (0.0-2.0); HEMATOCRIT. 44.2 % (42.0-52.0); HEMOGLOBIN. 14.8 g/dL (14.0-18.0); LYMPHOCYTES % 7.3 % (20.0-50.0); MEAN CORPUSCULAR HEMOGLOBIN 27.1 pg (28.0-32.0); MEAN CORPUSCULAR VOLUME 80.9 fL (80.0-94.0); MEAN PLATELET VOLUME 7.3 fl (7.4-10.4); MONOCYTES % 2.9 % (2.0-8.0); NEUTROPHILS % 89.6 % (40.0-76.0); PLATELET 351 x1000/uL (130-400); RED BLOOD CELL COUNT 5.46 mill/uL (4.7-6.1); RED CELL DISTRIBUTION WIDTH 17.6 % (11.6-14.6)
[2021-10-28 09:37] LABS: CHLORIDE 92 mEq/L (98-107)
[2021-10-28 09:44] LABS: ETHANOL BLOOD 208 mg/dL
[2021-10-28] MEDS ORDERED: CHLORDIAZEPOXIDE 25MG CAPSULE PO ONE (10:15)
[2021-10-28] MEDS ORDERED: MIDAZOLAM HCL 2 MG/2 ML VIAL IV ONE (10:15)
[2021-10-28 10:50] VITALS: BP 152/94
[2021-10-28] MEDS ORDERED: MORPHINE SULFATE 4 MG/ML CPJ (NOT FOR IM USE) IV ONE (11:15)
[2021-10-28 11:32] LABS: CLARITY URINE CLEAR (CLEAR); COLOR URINE YELLOW (YELLOW); KETONES URINE 3+ (NEGATIVE); LEUKOCYTE ESTERASE URINE NEGATIVE (NEGATIVE); NITRITE URINE NEGATIVE (NEGATIVE); OCCULT BLOOD URINE TRACE (NEGATIVE); PROTEIN URINE 1+ (NEGATIVE); SPECIFIC GRAVITY URINE 1.025 (1.005-1.030); UROBILINOGEN URINE 0.2 E.U./dL (0.2-1.0)
[2021-10-28] MEDS ORDERED: TOPUD PO (13:08)
== END 2021-10-28 13:35 | disposition home or self-care (01) ==
LOC: ER 08:44 → CANBEDREQ 14:18
DX: R10.11 Right upper quadrant pain (principal); F10.239 Alcohol dependence with withdrawal, unspecified; Y90.7 Blood alcohol level of 200-239 mg/100 ml; E11.9 Type 2 diabetes mellitus without complications; I10 Essential (primary) hypertension
CPT/HCPCS: 36415; 74176; 76705; 80053; 80320; 81003; 83690; 85025; 93005; 93880; 96361; 96374; 96375; 96376; 99285; J2250; J2270; J2405; J7030; G0480